=== PATIENT | female | born 1990 | race Hispanic/Latino ===

== ENCOUNTER 2017-12-18 16:02 | Inpatient (IN) | payer BC, SELFPAY ==
[2017-12-18] MEDS ORDERED: ISOVUE-370 76%-LOCM 1 ML ONE (16:23)
[2017-12-18 16:24] LABS: #Lymphocytes 1.6 thou/uL (1.20-3.40); #Monocytes 0.2 thou/uL (0.11-0.59); #Neutrophils 2.6 thou/uL (1.40-6.50); %Basophils 0.5 % (0.0-1.0); %Eosinophils 0.4 % (0.0-10.0); %Lymphocytes 35.1 % (21.0-51.0); %Monocytes 5.3 % (0.0-10.0); %Neutrophils 58.7 % (42.0-75.0); Hemoglobin 11.9 g/dL (12.0-16.0); Mean Corpuscular HGB CONC 31.1 g/dL (32.0-36.0); Mean Corpuscular Volume 77.2 fL (78.0-98.0); Mean Platelet Volume 8.6 fL (7.4-10.4); Platelet Count 252 thou/uL (130-400); RBC Distribution Width 14.6 % (11.5-14.5); Red Blood Cell (RBC) Count 4.94 mill/uL (4.20-5.40); White Blood Cell (WBC) Count 4.5 thou/uL (4.8-10.8)
[2017-12-18 16:30] LABS: PTT 28.4 SEC (22.9-36.1); Prothrombin Time 13.5 SEC (12.0-14.7)
[2017-12-18 16:39] LABS: ALT (SGPT) 12 U/L (8-55); AST (SGOT) 14 U/L (5-34); Albumin 4.4 g/dL (3.5-5.0); Alkaline Phosphatase 93 U/L (40-150); Anion Gap 13 mmol/L (10-20); BUN (Urea Nitrogen) 11 mg/dL (7.0-18.7); Bilirubin, Total 0.5 mg/dL (0.2-1.2); CK (CPK) 68 U/L (29-168); Calc. Creatinine Clearance 0 mL/min (70-130); Calcium 9.5 mg/dL (7.8-10.44); Carbon Dioxide 19 mmol/L (22-29); Chloride 108 mmol/L (98-107); Estimated GFR-MDRD 90; Globulin 3.1 g/dL (2.4-3.5); Glucose 103 mg/dL (70-105); Potassium 3.9 mmol/L (3.5-5.1); Protein, Total 7.5 g/dL (6.0-8.3); Sodium 136 mmol/L (136-145)
[2017-12-18 16:42] LABS: CKMB 0.5 ng/mL (0-6.6); Troponin I Less than 0.010 ng/mL (< 0.028)
--- NOTE | 2017-12-18 18:30 | CT ---
NONCONTRAST CT HEAD: 12/18/17 HISTORY: Stroke alert. Right sided deficits. The patient has right sided weakness and tingling to right side o f face. COMPARISON: 09/13/15 FINDINGS: There is a stable area of encephalomalacia again involving the left subinsular region, left temporal lobe as well as portion of the left frontal lobe likely related to prior insult. There is no evidence of an acute cortical infarction, hemorrhage, mass effect or midline shift. There is mild ex vacuo di latation of the body of the left lateral ventricle. Ventricular system is otherwise normal in size, s hape and position. There has been no interval change from prior study. IMPRESSION: 1. No acute intracranial abnormalities demonstrated. 2. Stable area of encephalomalacia in the left cerebral hemisphere. 3. Above findings discussed with Dr. Lovell in the Emergency Department on 12/18/17 at 1627 hours. POS: [facility]
--- NOTE | 2017-12-18 19:06 | CT ---
CT ANGIOGRAM HEAD WITH IV CONTRAST AND 3D RECONSTRUCTIONS CT ANGIOGRAM NECK WITH IV CONTRAST AND 3D RECONSTRUCTIONS 12/18/17 HISTORY: Right side weakness and tingling right face. FINDINGS: There is a normal arrangement of the great vessels at the aortic arch which are widely patent. The bi lateral subclavian arteries, innominate artery and bilateral common carotid arteries are widely paten t. The bilateral internal and external carotid arteries are patent. The right vertebral artery is dominant and patent. The left vertebral artery is patent but terminates in PICA and is smaller in caliber. The bilateral middle cerebral and anterior cerebral arteries as well as posterior cerebral arteries a re patent. No focal stenosis or branch occlusion is seen. No aneurysm is seen within the limitations of the technique of this examination. As noted on the noncontrasted CT exam, there is an area of encephalomalacia within the left cerebral hemisphere stable from prior exam on 09/13/15. There is a mucous retention cyst in the right maxillary antrum. There is atelectasis seen in the uppe r lung zones bilaterally. IMPRESSION: 1. Patent bilateral carotid arteries. 2. [place] and vertebrobasilar system are patent without focal stenosis identified. No aneurysm is seen within the limitations of the technique of this exam. 3. Above findings discussed with Dr. Lovell in the Emergency Department, 12/18/17 at 1643 hours. POS: [facility]
[2017-12-18] MEDS ORDERED: Ondansetron ODT 4 MG TAB PO PRN (20:13)
[2017-12-18] MEDS ORDERED: Bisacodyl 5 MG TAB PO PRN (20:13)
[2017-12-18] MEDS ORDERED: Calcium Carbonate 500 MG ChewTAB PO PRN (20:13)
[2017-12-18] MEDS ORDERED: Acetaminophen 500 MG TAB PO PRN (20:13)
[2017-12-18] MEDS ORDERED: Sodium Chloride 0.9% 1,000 ML IV SCH (20:15)
[2017-12-18 20:33] VITALS: BMI 24.7
--- NOTE | 2017-12-19 00:22 | HP ---
DATE OF ADMISSION: 12/18/2017 PRIMARY CARE PHYSICIAN: Jose Mccabe M.D. CHIEF COMPLAINT: Right-sided weakness and paresthesia. HISTORY OF PRESENT ILLNESS: The patient has a significant past medical history for AV malformation diagnosed in 2008, managed by Dr. Miller here locally of Neurosurgery, recently diagnosed with hemorrhagic component to frontotemporal region, which has since caused some cortical atrophy following at least 2 times stereotactic radioablation surgery to AV malformation and has subsequently completely resolved on current scans. The patient was noted to have mild baseline right-sided weakness and this AV malformation was primarily in the deep white matter of the anterior left parietal lobe. The patient is on no medications on an outpatient basis, has not started any new supplements, has not felt ill, is a bit of a night owl; however, when she awoke this mid morning , it was felt that she might have slept funny, had numbness and tingling to the entire right side of body, took a nap and then woke up and the symptoms had worsen with weakness, concerning enough especially given the patient's history and was transported to the emergency room and underwent evaluation where the patient quickly regained baseline status. The only new symptoms that remain include the patient's paresthesias to the right side upper and lower extremities. The patient also feels somewhat altered sensorium to right cheek. The patient denies any illicit drugs, any alcohol use or abuse. REVIEW OF SYSTEMS: No fevers, no chills, no fatigue, no runny nose, no congestion, no sinus pain, no sore throat, no cough, no wheeze. No chest pain or shortness of breath. No diarrhea, no vomiting. No lower extremity edema. No syncope. No confusion. Positive paraesthesia. Positive muscle weakness. Denies joint pain, swelling. Denies rashes. Denies tick bites. PAST MEDICAL/SOCIAL/SURGICAL HISTORY: No medications. No allergies. AV malformation as above, status post stereotactic radioablation x2 with Dr. Miller as above. The patient denies alcohol or tobacco abuse. LABORATORY DATA: Review of laboratory work, troponin x1 of less than 0.01. Albumin of 4.4. CK of 68, ALT of 12, AST of 14, calcium 9.5, glucose 103, creatinine of 0.7, CO2 of 19, potassium of 3.9, sodium of 136. INR of 1.0. White blood cell count of 4.5, hemoglobin of 11.9, MCV of 77.2, platelet count of 252,000. PHYSICAL EXAMINATION: VITAL SIGNS: Temperature 97.8, pulse of 70, respiratory rate 16, oxygen saturation 98% on room air, blood pressure 109/79. GENERAL: The patient is alert and oriented, in no acute distress. HEENT: Head is normocephalic, atraumatic. Extraocular movements are intact. Pupils are equal, round and reactive to light and accommodate. Slight right- sided facial droop; however, the patient is easily able to smile. Cranial nerves II-XII grossly intact. Oral mucosa is dry. NECK: Supple, nontender. HEART: Regular rate and rhythm at the time of exam. No murmurs are auscultated. LUNGS: Clear to auscultation bilaterally. No rubs or wheezes. ABDOMEN: Soft, nontender. Positive bowel sounds throughout. EXTREMITIES: Lower extremities without cyanosis or edema. Paresthesias to gross touch right cheek, upper and lower extremities. 4/5 strength of right upper and lower extremity compared to the left; however, this is extremely minimal. Deep tendon reflexes intact upper and lower extremities, 2+ bilaterally. NEUROLOGIC: The patient is alert and oriented x3. No focal deficits other than strength and sensorium changes as above. Speech is normal otherwise. ASSESSMENT AND PLAN: The patient's symptoms are consistent with transient ischemic attack. The patient with a significant history of arteriovenous malformation, however, status post ablation and eradication. The patient having a history of right-sided weakness, which is largely at baseline; however , paresthesias are what is new consistent with possible transient ischemic attack. The patient has received aspirin in the emergency room. We will continue . No hemorrhagic component was found on CTA or CT of head and brain. No mention of arteriovenous malformation present. We will seek Neurology and Neurosurgery's recommendations. At this point, ordered MRI to further rule out any ischemic components or extension of prior damage area. Given the patient's mild tachycardia in the emergency room and dry mouth, we will treat for dehydration and her mother states she does not drink enough water. However, the patient's vital signs and blood pressure have already stabilized on arrival to the floor. We will check some baseline laboratory work including thyroid panel, hemoglobin electrophoresis for any sickle cell trait, folic acid, B12. Follow up any extra recommendations. At this point, since the patient is largely at baseline, we will go ahead and allow for diet and up with assistance. Neuro checks overnight, however. Thank you very much. We will check out to Dr. Garcia in the a.m. MTDD
[2017-12-19 04:31] LABS: #Basophils 0.1 thou/uL (0.0-0.2); #Lymphocytes 1.7 thou/uL (1.20-3.40); #Monocytes 0.3 thou/uL (0.11-0.59); #Neutrophils 2.8 thou/uL (1.40-6.50); %Basophils 1.7 % (0.0-1.0); %Eosinophils 0.5 % (0.0-10.0); %Lymphocytes 35.2 % (21.0-51.0); %Monocytes 6.2 % (0.0-10.0); %Neutrophils 56.3 % (42.0-75.0); Hemoglobin 9.6 g/dL (12.0-16.0); Mean Corpuscular HGB CONC 31.2 g/dL (32.0-36.0); Mean Corpuscular Hemoglobin 23.9 pg (27.0-31.0); Mean Corpuscular Volume 76.5 fL (78.0-98.0); Mean Platelet Volume 8.9 fL (7.4-10.4); Platelet Count 205 thou/uL (130-400); RBC Distribution Width 14.6 % (11.5-14.5); Red Blood Cell (RBC) Count 4.03 mill/uL (4.20-5.40); White Blood Cell (WBC) Count 4.9 thou/uL (4.8-10.8)
[2017-12-19 04:42] LABS: BHCG - Serum Negative (NEGATIVE); Pregs Control Background? CLEAR/WHITE (CLR/WHITE); Pregs Control Bar Appear? YES (CONTROL BAR)
[2017-12-19 04:54] LABS: ALT (SGPT) 9 U/L (8-55); AST (SGOT) 11 U/L (5-34); Albumin 3.6 g/dL (3.5-5.0); Alkaline Phosphatase 74 U/L (40-150); Anion Gap 10 mmol/L (10-20); BUN (Urea Nitrogen) 11 mg/dL (7.0-18.7); Bilirubin, Total 0.3 mg/dL (0.2-1.2); Calc. Creatinine Clearance 122 mL/min (70-130); Calcium 8.5 mg/dL (7.8-10.44); Carbon Dioxide 21 mmol/L (22-29); Cardiac Risk 3.5 (Less than 4.5); Chloride 113 mmol/L (98-107); Cholesterol 133 mg/dl (< 200 Desired); Estimated GFR-MDRD Greater than 90; Globulin 2.3 g/dL (2.4-3.5); Glucose 78 mg/dL (70-105); HDL Cholesterol 38 mg/dL (>60 Neg Risk); Iron 16 ug/dL (50-170); Iron Binding Capacity, Total 383 mcg/dL (265-497); LDL Cholesterol, Calculated 86 mg/dL; Potassium 3.7 mmol/L (3.5-5.1); Protein, Total 5.9 g/dL (6.0-8.3); Sodium 140 mmol/L (136-145); Transferrin, Serum 306 mg/dL (180-382); Triglycerides 46 mg/dL (Less than 150)
[2017-12-19 05:06] LABS: Thyroid Stimulating Hormone 1.6364 uIU/mL (0.35-4.94)
[2017-12-19 05:36] LABS: Ferritin 3.61 ng/mL (10-291); Free T4 (Free Thyroxine) 1.03 ng/dL (0.70-1.48)
[2017-12-19 05:45] LABS: Folate (Folic Acid) 7.3 ng/mL (7.0-31.4)
--- NOTE | 2017-12-19 08:45 | MRI ---
MRI BRAIN NONCONTRAST: HISTORY: Right-sided deficits. Weakness. Old CVA. COMPARISON: CT head from 12/18/2017. FINDINGS: At the posterior aspect of the left basal ganglia abutting the anterior medial margin of the old left cerebral infarct, an irregular-shaped focus of restricted diffusion measures up to 0.9 cm and shows corresponding defect on the ADC mapping images. No other areas of acute intracranial infarct are evident. Ventricles appear normal in size, shape, a nd position. Mucous retention cyst at the floor of the right maxillary sinus is partially visualized . 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 POS: [facility]
[2017-12-19] MEDS ORDERED: Aspirin 325 mg Enteric Coated Tablet PO SCH (09:00)
--- NOTE | 2017-12-19 09:56 | CON ---
DATE OF CONSULTATION: 12/19/2017 CONSULTING PHYSICIAN: Hospitalist Service. IMPRESSION: A small area of ischemia adjacent to her prior arteriovenous malfunction, which was radi ated. 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 PLAN: Aspirin 325 mg per day. Ms. Valencia is a 27-year-old female with a past history of an AVM that was treated 10 years ago. She developed right-sided weakness and numbness yesterday. This was different than her baseli ne level of mild deficit that she had had before. The symptoms have improved somewhat since yesterda y. There is no associated headache or seizure activity. She came into the hospital for evaluation. Her initial CT scan of the brain did not show any evidence of hemorrhage. A followup MRI shows an a liana of diffusion abnormality adjacent to the prior lesion. It is medial to it and just lateral to th e ventricle on the left mid parietal region. Otherwise, she feels like things are going well. Vital signs have been stable, and she has been afebrile. PAST MEDICAL HISTORY: Otherwise, negative. ALLERGIES: None. SOCIAL HISTORY: No tobacco or alcohol use. FAMILY HISTORY: Noncontributory. MEDICATION LIST: Reviewed. REVIEW OF SYSTEMS: No complaint of migraines, nausea, vomiting, confusion, alteration of consciousne ss. PHYSICAL EXAMINATION: GENERAL: She is a well-nourished young woman in no distress. VITAL SIGNS: Blood pressure 108/74, pulse 66, respirations 16, temperature 97.9. HEENT: Within normal limits. NECK: Supple. EXTREMITIES: No cyanosis or edema. NEUROLOGIC: She is alert and appropriate. Her speech is fluent and clear. Cranial nerves II-XII ar e intact. Motor exam showed a fix on arm roll testing on the right side. Prize Coordinator strength was relative ly symmetric. Plantar responses were downgoing. Her gait was not tested. No abnormal movements wer e seen. LABORATORY STUDIES: White blood cell count 4.5, hemoglobin 11.9, platelet count 252. Coagulation st udies are within normal limits. Chemistry panel was unremarkable other than a bicarbonate of 19. SUMMARY: This is a young woman with prior radiation therapy for an AVM 10 years ago. She has a smal l area of acute ischemia adjacent to it. It is likely secondary to radiation damage to the vessels. I would start with antiplatelet therapy if there were any further events, would consider switching h er to an anticoagulant. She seems to be stable and can be discharged home.
[2017-12-19 11:26] LABS: INR-International Normal Ratio 1.1; PTT 29.7 SEC (22.9-36.1); Prothrombin Time 14.3 SEC (12.0-14.7)
[2017-12-19 11:30] LABS: D-Dimer Test Less than 0.27 *mcg/mL (0.27-0.43)
[2017-12-19 11:57] VITALS: BP 111/78; TEMP 97.7
[2017-12-19 15:20] LABS: Cardiolipin IgA Ab 0.3 APL-U/mL (<14 Negative); Cardiolipin IgG Ab 0.9 GPL-U/mL (<10 Negative); Cardiolipin IgM Ab Less than 0.8 MPL-U/mL (<10 Negative); EliA APS New Method **** NEW METHOD ****
--- NOTE | 2017-12-20 05:11 | DIS ---
DATE OF ADMISSION: 12/18/2017 DATE OF DISCHARGE: 12/19/2017 PRIMARY CARE PHYSICIAN: Dr. Jose Mccabe. CHIEF COMPLAINT: Right-sided paresthesia and weakness. HISTORY OF PRESENT ILLNESS: The patient with history of AV malformation, which was obliterated with radiofrequency procedure with Dr. Miller, times at least 2-3 trials. This was approximately 9 years a go. The patient has had minimal right-side upper and lower extremity weakness as at baseline. She s ubsequently had paresthesias and worsening weakness prior to admission, times approximately 8-12 hour s with symptoms occurring after she woke up, evaluation with CTA did not find any AV malformation, ap pears to be completely closed prior of left parenchymal deep white matter parietal lobe. The patient was placed on aspirin. MRI was performed and found small infarcts. There was acute left basal gang lion near the anterior margin of old hemorrhagic cerebral infarct. Dr. Jonas saw the patient and f elt like she was stable for discharge as she had returned back to her baseline of strength, speech, a mbulation, however, she remained with paresthesias, but progressively improved during her hospitaliza tion, given no AV malformation and definitive CVA. Neurosurgery did not see patient prior to dischar . The patient's baseline laboratory work was normal other than a microcytic anemia, found to have low iron levels. The patient has struggled with iron deficiency anemia in the past, has not been on iron replacement. Hypercoagulability workup was ordered along with a hemoglobin electrophoresis look ing for any sickle cell trait for causes other than AV malformation remnant the vasculature instabili ty to cause infarct, so far homocysteine is currently normal. Factor V Leiden and etc will be pendin g over the next several days. DISCHARGE MEDICATIONS: The patient discharged with atorvastatin 10 mg, full dose aspirin 325 mg, anny delta sulfate 325 mg 1 tab p.o. b.i.d. FOLLOWUP: Follow up with Dr. Jose Mccabe in the next 7 days. Follow up with Dr. Jonas in the nex t month. DISCHARGE DIET: Heart healthy. DISCHARGE ACTIVITY: As tolerated. No restrictions. The patient returned to baseline strength. DISCHARGE CONDITION: Good.
[2017-12-22 12:05] LABS: Factor VIII Test 207.5 % ACTIVE (56-157); Protein C Activity 82 % (78-152)
[2017-12-22 14:02] LABS: HEX PHOS LA Tube 1 47.8 SEC; HEX PHOS LA Tube 2 48.3 SEC
[2017-12-22 23:08] LABS: HSV-1 IgG Type Specific <0.91 index (0.00-0.90); HSV-2 IgG Type Specific Less than 0.91 index (0.00-0.90)
[2017-12-23 11:18] LABS: Hemoglobin A 98.1 % (96.4-98.8); Hemoglobin A2 1.9 % (1.8-3.2); Hemoglobin F 0 % (0.0-2.0); Interpretation Note: (.)
== END 2017-12-19 15:41 | disposition home or self-care (01) | DRG 93 ==
LOC: ERS 16:02 → OBSVTOIN 17:32 → ERHOLD 17:32 → 2SE 20:03
PROVIDERS: ADMIT Family Medicine; ATTEND Family Medicine
DX: R20.2 Paresthesia of skin (principal); R53.1 Weakness
CPT/HCPCS: 36415; 36416; 70450; 70496; 70498; 70551; 80053; 80061; 81240; 81241; 82330; 82550; 82553; 82607; 82728; 82746; 82803; 83021; 83090; 83540; 83550; 83880; 84439; 84443; 84466; 84484; 84703; 85025; 85240; 85300; 85303; 85305; 85307; 85379; 85598; 85610; 85730; 86147; 86694; 86695; 86696; 90471; 90686; 93005; G0008; G8996-GN-CH; G8997-GN-CH; G8998-GN-CH